=== PATIENT | male | born 1995 | race Hispanic/Latino ===

== ENCOUNTER 2018-01-26 10:06 | Inpatient (IN) | payer OTHER ==
[2018-01-26 10:58] LABS: BASO % 0.1 % (0.0-2.0); EOS % 0.2 % (0.0-4.0); HEMOGLOBIN 16.8 g/dL (12.0-18.0); LYMPH # 1.2 K/uL (1.0-4.3); LYMPH % 9.1 % (20.0-40.0); MEAN CELL VOLUME 89.1 fL (80.0-94.0); MEAN CORPUSCULAR HEMOGLOBIN 30.9 pg (27.0-31.0); MEAN CORPUSCULAR HGB CONC 34.6 g/dL (33.0-37.0); MONO # 0.6 K/uL (0.0-0.8); MONO % 4.2 % (0.0-10.0); NEUT # 11.7 K/uL (1.8-7.0); NEUT % 86.4 % (50.0-75.0); PLATELET COUNT 203 K/uL (130-400); RBC 5.44 Mil/uL (4.40-5.90); RED CELL DISTRIBUTION WIDTH 13.2 % (11.5-14.5); WHITE BLOOD COUNT 13.6 K/uL (4.8-10.8)
[2018-01-26 11:08] LABS: ALB/GLOB RATIO 1.4 (1.0-2.1); ALBUMIN 5.4 g/dL (3.5-5.0); ALT/SGPT 36 U/L (21-72); AST/SGOT 25 U/L (17-59); BLOOD UREA NITROGEN 10 mg/dL (9-20); CALCIUM 10.3 mg/dl (8.6-10.4); GFR NON-AFRICAN AMERICAN > 60
[2018-01-26 11:14] LABS: ACETAMINOPHEN < 10.0 ug/mL (10.0-30.0); SALICYLATE < 1.0 mg/dL 1
[2018-01-26 11:25] LABS: URINE BILIRUBIN NEGATIVE (NEGATIVE); URINE BLOOD NEGATIVE (NEGATIVE); URINE CLARITY Clear (Clear); URINE COLOR Straw (YELLOW); URINE GLUCOSE (UA) NORMAL (Normal); URINE LEUKOCYTE ESTERASE NEG Leu/uL (Negative); URINE PROTEIN NEGATIVE (NEGATIVE); URINE UROBILINOGEN NORMAL mg/dL (0.2-1.0)
[2018-01-26 11:29] LABS: BANDS 1 % (0-2); LYMPHOCYTE 6 % (20-40); MONOCYTE 4 % (0-10); NEUTROPHIL 89 % (50-75); PLATELET ESTIMATE NORMAL (NORMAL); TOTAL CELLS COUNTED 100
[2018-01-26 11:55] LABS: BARBITURATES, UR NEGATIVE (NEGATIVE); BENZODIAZEPINES, UR NEGATIVE (NEGATIVE); OPIATES, UR NEGATIVE (NEGATIVE); PHENCYCLIDINE, UR NEGATIVE (NEGATIVE)
--- NOTE | 2018-01-26 12:51 | C.PDOC ---
History Of Present Illness 23-year-old male presents to the ED for psychiatric evaluation. Patient was on the phone with the suicide hotline and police were contacted when he verbalized suicidal ideation and plan. Patient states he feels very overwhelmed because he is not doing well in school. He cannot face his family and feels like this is his only option. Patient got his hands on some razors, and was planning on using them to hill himself. Patient has history of depression and saw a psychologist 6-8 months ago, but has never been placed on any medication. Patient denies previous suicidal attempts, smoking, drinking or drug use. Time Seen by Provider: 01/26/18 10:18 Chief Complaint (Nursing): Psychiatric Evaluation History Per: Patient History/Exam Limitations: no limitations Onset/Duration Of Symptoms: Hrs Current Symptoms Are (Timing): Still Present Suicide/Self Injury Attempted (Context): None Modifying Factor(s): None Associated Symptoms: Suicidal Thoughts, Suicidal Plan Involuntary Hold By: None Recent travel outside of the [place]: No Additional History Per: Patient Past Medical History Reviewed: Historical Data, Nursing Documentation, Vital Signs Vital Signs: Last Vital Signs Temp 98.2 F 01/26/18 10:42 Pulse 62 01/26/18 10:42 Resp 18 01/26/18 10:42 BP 130/76 01/26/18 10:42 Pulse Ox 100 01/26/18 10:42 - Medical History PMH: No Chronic Diseases Denies: Diabetes, Hepatitis, HIV, HTN, Seizures, Sexually Transmitted Disease Surgical History: No Surg Hx Family History: States: Unknown Family Hx - Social History Hx Alcohol Use: No Hx Substance Use: No - Immunization History Hx Tetanus Toxoid Vaccination: No Hx Influenza Vaccination: No Hx Pneumococcal Vaccination: No Review Of Systems Psych: Positive for: Suicidal ideation (with plan ) Physical Exam - Physical Exam Appears: Non-toxic, No Acute Distress Skin: Normal Color, Warm, Dry Head: Atraumatic, Normacephalic Eye(s): bilateral: Normal Inspection Oral Mucosa: Moist Neck: Supple Chest: Symmetrical, No Deformity Cardiovascular: Rhythm Regular Respiratory: No Accessory Muscle Use Extremity: Normal ROM Neurological/Psych: Oriented x3, Normal Speech, Normal Cognition, Other (depressed affect ) ED Course And Treatment - Laboratory Results Result Diagrams: 01/26/18 10:47 01/26/18 10:47 O2 Sat by Pulse Oximetry: 100 (on RA) Pulse Ox Interpretation: Normal Medical Decision Making Medical Decision Making: Impression: 23 year old male with suicidal ideation and plan Plan: * bloodwork * urinalysis * crisis evaluation * reassess and disposition Progress: Bloodwork and urinalysis ordered and reviewed. Patient will be evaluated by dairy worker. Patient medically cleared, evaluated by crisis, admitted to Dr. Benavides for major depressive disorder Disposition - Disposition Disposition: HOSPITALIZED Disposition Time: 17:00 Condition: FAIR - Clinical Impression Clinical Impression: MDD (major depressive disorder) - Scribe Statement The provider has reviewed the documentation as recorded by the Scribe (Lara Del Castillo) Provider Attestation: All medical record entries made by the Scribe were at my direction and personally dictated by me. I have reviewed the chart and agree that the record accurately reflects my personal performance of the history, physical exam, medical decision making, and the department course for this patient. I have also personally directed, reviewed, and agree with the discharge instructions and disposition.
--- NOTE | 2018-01-26 17:34 | PCM.BM ---
<Leanne Cheng - Last Filed: 01/26/18 17:32> Treatment Plan Problems - Problems identified on initial assessmt Depression Date Initiated: 01/26/18 Time Initiated: 17:33 Assessment reference: NA Status: Active Suicidal Ideation Date Initiated: 01/26/18 Time Initiated: 17:33 Assessment reference: NA Status: Active Treatment assets and liabiliti Patient Assests: adapts well, cooperative, ADL independent, physically healthy, negotiates basic needs, cognitively intact Patient Liabilities: live alone (Lives in a dorm in college), substance abuse (None), medical problems (None) - Milieu Protocol Maintain good personal hygiene: daily Encourage regular showers, daily Remind patient to perform daily oral care, daily Assist patient to perform ADL's (Self) Conduct patient checks and document Observation sheet: Q15 minutes (Safety) Maintain personal safety: every shift Educate patient to report safety concerns to staff, every shift Monitor environment for contraband/sharps Medication safety: Monitor for expected outcome, potential side effects: every shift, Assess barriers to learning: every shift, Assess readiness for medication education: every shift <Alyssa Lopez - Last Filed: 01/31/18 11:25> - Diagnosis (1) MDD (major depressive disorder) Status: Acute Interventions: 01/31/18 11:25 * Assess/adjust medications daily and /or as needed * See patient on an individual basis 7x/week to assess symptoms of depression * Monitor for side effects & effectiveness of medications * <Verna Guthrie - Last Filed: 01/31/18 13:22> Family Contact Family involvement: Family/SO is involved Family contact: Patient agrees to contact Family contact name: Aileen Glover-mother Family contacted how many times per week?: 1 - Goals for Treatment Patient goals for treatment: "I don't know what I want to do yet." Discharge/Continuing Care - Education Needs Education Needs: Patient Medication, Patient Coping Skills - Discharge Discharge Criteria: Tolerates medication w/o severe side effects, Free of Suicidal thoughts, Reduction of target symptoms Discharge to:: Home - Treatment Team Participation Discussed with Family/SO: No Was Patient/Family/SO present at Treatment Team Meeting: Yes
[2018-01-26] MEDS ORDERED: Magnesium Hydroxide Susp 30 ml UD PO PRN (18:39)
[2018-01-28] MEDS ORDERED: Influenza Vaccine 60 MCG/0.5 ML SYR (3 yr & up) IM ONE (10:00)
[2018-01-28] MEDS ORDERED: Pneumococcal 23-Valent Vaccine IM ONE (10:00)
--- NOTE | 2018-01-29 04:46 | PCM.PSYCH ---
Initial Psychiatric Evaluation - Initial Psychiatric Evaluation Legal Status: Capacity Chief Complaint (in patient's own words): i'm here because i chose to come volunitarily rather than be committed Patient's Reaction to Hospitalization: nothing History of Present Illness and Precipitating Events: OR IS A 23 YEAR OLD SINGLE, DOMICILED, RABBINICAL STUDENT WHO CALLED THE SUICIDE HOT LINE BECAUSE HE WANTED TO DISCUSS HIS "OPTIONS. 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 PT LEFT SCHOOL AND WENT TO A [place] AND FROM THERE HE CALLED THE HOTLINE. PT WAS FOUND WITH A LARGE ASSORTMENT OF KNIVES AND OTHER CUTTING INSTRUMENTS. PT HAD BOUGHT THESE OBJECTS AT A HOME DEPOT. PT FEELS HE CANNOT FACE HIS FAMILY AND FELLOW STUDENTS THAT HE IS OVERWHELMED WITH THE INTRICACIES OF THE [place] AND THE VAST AMOUNT OF INFORMATION. PT HAS NOT CALLED HIS FAMILY OR FRIENDS TO LET THEM KNOW WHERE HE IS. HE STATES HE DOES NOT WANT TO DISAPPOINT HIS FAMILY AND FRIENDS. PT HAS NO LEGAL, OR SUBSTANCE ABUSE HISTORY PT STATES THERE ARE NO OTHER OPTIONS FOR HIM BUT TO GO TO [employer]. HE IS NOT INTERESTED IN ANY THING ELSE. Current Medications: Active Medications Generic Name Dose Route Start Last Admin Trade Name Freq PRN Reason Stop Dose Admin Hydroxyzine HCl 50 mg 01/26/18 18:39 01/28/18 22:42 Atarax PO 50 mg Q6 PRN Administration Anxiety Ibuprofen 600 mg 01/26/18 18:39 Motrin Tab PO Q6 PRN Pain, moderate (4-7) Magnesium Hydroxide 30 ml 01/26/18 18:39 Milk Of Magnesia PO Q8 PRN Heartburn Trazodone HCl 50 mg 01/26/18 18:39 01/29/18 00:29 Desyrel PO 50 mg HS PRN Administration Insomnia Past Psychiatric History - Past Psychiatric History Prior Professional Help: PT HAS BTALKED WITH A SABIANIST THERAPIST Pertinent Medical Hx (Current Medical&Sleep Prob, Allergies): Allergies Allergy/AdvReac Type Severity Reaction Status Date / Time No Known Allergies Allergy Verified 01/26/18 10:17 No Known Home Med 01/26/18 Review of Systems - EENT Eyes: UNREMARKABLE Ears: UNREMARKABLE Nose/Mouth/Throat: UNREMARKABLE - Cardiovascular Cardiovascular: UNREMARKABLE - Respiratory Respiratory: UNREMARKABLE - Gastrointestinal Gastrointestinal: UNREMARKABLE - Genitourinary Genitourinary: UNREMARKABLE - Reproductive: Male Reproductive:Male: UNREMARKABLE - Musculoskeletal Musculoskeletal: UNREMARKABLE - Integumentary Integumentary: UNREMARKABLE - Neurological Neurological: UNREMARKABLE - Psychiatric Psychiatric: Depression, Hopelessness - Endocrine Endocrine: UNREMARKABLE - Hematologic/Lymphatic Hematologic: UNREMARKABLE Mental Status Examination - Personal Presentation Personal Presentation: Looks younger than stated age - Affect Affect: Flat - Motor Activity Motor Activity: Calm - Reliability in Providing Information Reliability in Providing Information: Good - Speech Speech: Organized, Other - Mood Mood: Neutral - Formal Thought Process Formal Thought Process: No Impairment - Obsessions/Compulsions Obsessions: None Compulsions: None - Cognitive Functions Orientation: Person, Place, Situation, Time Sensorium: Alert Attention/Concentration: Attentive Abstract Thinking: As evidence by abstract perception of proverbs Estimate of Intelligence: Above Average Judgement: Intact, as evidence by: Other Memory: Recent intact, as evidence by: Ability to recall events of the day, Remote intact, as evidenced by: Abilit to recall sig. life events - Risk Risk: Suicidal - Strength & Assets Inventory Strength & Assets Inventory: Education - Limitations Limitations: Other DSM 5 DX - Recommended/Plan of Treatment Treatment Recommendations and Plan of Treatment: MAJOR DEPRESSIVE DISORDER SINGLE EPISODE, SEVERE WITHOUT PSYCHOTIC FEATURES: ANTIDEPRESSANT OF PT'S CHOICE. PT IS REFUSING TO TAKE ANY MEDICATIONS. SUPPORTIVE PSYCHOTHERAPY GROUP AND RECREATIONAL THERAPY Projected ELOS: 10 DAYS Prognosis: GUARDED Discharge Plan and Discharge Criteria: WHEN PT IS ABLE TO SEE A FUTURE FOR HIMSELF - Smoking Cessation Smoking Cessation Initiated: No
--- NOTE | 2018-01-29 04:56 | PCM.PYCHPN ---
Psychiatric Progress Note - Psychiatric Progress Note Patient seen today, length of contact: 20 MIN Patient Chief Complaint: NOTHING Problems Identified/Issues Discussed: PT SEEN AND EXAMINED D/W TEAMD/W PT OPTIONS OF WHAT HE COULD DO WITH HIS LIFE EXCEPT BE A RABBI. PT REFUSED TO EVEN CONSIDER OTHER OPTIONS ALSO DISCUSSED THE POSSIBILITY THAT AN ANTIDEPRESSANT WOULD HELP. PT POLITELY REFUSED Medical Problems: NOTHING ACUTE Diagnostic Results: REVIEWED DSM 5 Symptoms Update: HOPELESSNESS Medication Change: No Medical Record Reviewed: Yes Mental Status Examination - Cognitive Function Orientation: Person, Place, Situation, Time Memory: Intact Attention: WNL Concentration: WNL Association: WNL Fund of Knowledge: WN - Mood Mood: Neutral - Affect Affect: Flat - Speech Speech: Appropriate - Formal Thought Process Formal Thought Process: No Impairment - Suicidal Ideation Suicidal Ideation: No Plan: PT STATES HE HAS NO PURPOSE IN LIFE - Homicidal Ideation Homicidal Ideation: No Goal/Treatment Plan - Goal/Treatment Plan Need for Continued Stay: Remain at risks for inpatient hospitalization, Severe functional impairment Progress Toward Problem(s) and Goals/Treatment Plan: MAJOR DEPRESSIVE DISORDER SINGLE EPISODE, SEVERE WITHOUT PSYCHOTIC FEATURES: ENCOURAGE PT TO START AN ANTIDEPRESSANT Estimated Date of D/C: 02/05/18 - Smoking Cessation Smoking Cessation Initiated: No
--- NOTE | 2018-01-29 22:29 | PCM.PYCHPN ---
Psychiatric Progress Note - Psychiatric Progress Note Patient seen today, length of contact: 15 MIN Patient Chief Complaint: I was feeling depressed.' Problems Identified/Issues Discussed: Patient seen and evaluated, chart reviewed and discussed with the nurse. Patient reports depressed mood and at times feelings of hopelessness and helplessness. As per the staff patient remained isolated and withdrawn. He reports poor sleep and poor appetite. He is still refusing medications. Supportive therapy and psychoeducation were given. Medication Change: No Medical Record Reviewed: Yes Mental Status Examination - Cognitive Function Orientation: Person, Place, Situation, Time Memory: Intact Attention: WNL Concentration: Poor Association: WNL Fund of Knowledge: Poor - Mood Mood: Depressed, Anxious - Affect Affect: Constricted, Flat - Speech Speech: Appropriate - Formal Thought Process Formal Thought Process: No Impairment - Suicidal Ideation Suicidal Ideation: No - Homicidal Ideation Homicidal Ideation: No Goal/Treatment Plan - Goal/Treatment Plan Need for Continued Stay: Remain at risks for inpatient hospitalization, Severe functional impairment Progress Toward Problem(s) and Goals/Treatment Plan: Major Depressive disorder single episode severe without psychotic features -CBT -Psychotherapy -Supportive therapy, group therapy, individual therapy -Atarax 50 mg PO Q6 prn -Trazodone 50 mg PO QHS prn -Start Zoloft 50 mg PO Daily Estimated Date of D/C: 02/05/18
--- NOTE | 2018-01-30 23:12 | PCM.PYCHPN ---
Psychiatric Progress Note - Psychiatric Progress Note Patient seen today, length of contact: 15 MIN Patient Chief Complaint: I m feeling depressed.' Problems Identified/Issues Discussed: Patient seen and evaluated, chart reviewed and discussed with the nurse. Patient reports depressed mood and at times feelings of hopelessness and helplessness. As per the staff patient remained isolated and withdrawn. He reports poor sleep and poor appetite. He started taking medications but denies any side effects. Supportive therapy and psychoeducation were given. Medication Change: No Medical Record Reviewed: Yes Mental Status Examination - Cognitive Function Orientation: Person, Place, Situation, Time Memory: Intact Attention: WNL Concentration: WNL Association: WN Fund of Knowledge: Poor - Mood Mood: Neutral - Affect Affect: Flat - Speech Speech: Appropriate - Formal Thought Process Formal Thought Process: No Impairment - Suicidal Ideation Suicidal Ideation: No - Homicidal Ideation Homicidal Ideation: No Goal/Treatment Plan - Goal/Treatment Plan Need for Continued Stay: Remain at risks for inpatient hospitalization, Severe functional impairment Progress Toward Problem(s) and Goals/Treatment Plan: Major Depressive disorder single episode severe without psychotic features -CBT -Psychotherapy -Supportive therapy, group therapy, individual therapy -Atarax 50 mg PO Q6 prn -Trazodone 50 mg PO QHS prn -Start Zoloft 50 mg PO Daily Estimated Date of D/C: 02/05/18
--- NOTE | 2018-01-31 14:24 | PCM.PYCHPN ---
Psychiatric Progress Note - Psychiatric Progress Note Patient seen today, length of contact: 15 MIN Patient Chief Complaint: I m feeling little better' Problems Identified/Issues Discussed: Patient seen and evaluated, chart reviewed and discussed with the nurse. Patient reports some improvement in his depressed mood and feelings of hopelessness and helplessness. He remained isolated and withdrawn. He still reports poor sleep and poor appetite. He denies any AVH. He started taking medications but denies any side effects. Supportive therapy and psychoeducation were given. Medication Change: Yes Medical Record Reviewed: Yes Mental Status Examination - Cognitive Function Orientation: Person, Place, Situation, Time Memory: Intact Attention: WNL Concentration: WNL Association: WNL Fund of Knowledge: Poor - Mood Mood: Neutral - Affect Affect: Flat - Speech Speech: Appropriate - Formal Thought Process Formal Thought Process: No Impairment - Suicidal Ideation Suicidal Ideation: No - Homicidal Ideation Homicidal Ideation: No Goal/Treatment Plan - Goal/Treatment Plan Need for Continued Stay: Remain at risks for inpatient hospitalization, Severe functional impairment Progress Toward Problem(s) and Goals/Treatment Plan: Major Depressive disorder single episode severe without psychotic features -CBT -Psychotherapy -Supportive therapy, group therapy, individual therapy -Atarax 50 mg PO Q6 prn -Trazodone 50 mg PO QHS prn -Zoloft 100 mg PO Daily -Seroquel 100 mg PO QS Estimated Date of D/C: 02/05/18
--- NOTE | 2018-02-01 14:12 | PCM.PYCHPN ---
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 He seems comfortable and socializing well with some patients, even flirtatious at times, yet he says things to scare staff, i.e. "I'll if you discharge me" He is still not open to his family's help but he is somewhat softer compared to admission CBT introduced No med changes for now, as they are new Safety plan discussed Medication Change: No Medical Record Reviewed: Yes Mental Status Examination - Cognitive Function Orientation: Person, Place, Situation, Time Memory: Intact Attention: WNL Concentration: WNL Association: WNL Fund of Knowledge: WNL - Mood Mood: Depressed - Affect Affect: Blunted - Speech Speech: Appropriate - Formal Thought Process Formal Thought Process: No Impairment - Suicidal Ideation Suicidal Ideation: No - Homicidal Ideation Homicidal Ideation: No Goal/Treatment Plan - Goal/Treatment Plan Need for Continued Stay: Severe depression anxiety, Discharge may exacerbated symptoms, Severe functional impairment Progress Toward Problem(s) and Goals/Treatment Plan: Continue medications Support and psychoeducation daily Attend groups and activities daily After care planning by TORSTEN Estimated Date of D/C: 02/08/18 If changed, why: Needs more time to improve
--- NOTE | 2018-02-02 09:57 | PCM.PYCHPN ---
Psychiatric Progress Note - Psychiatric Progress Note Patient seen today, length of contact: 20 min Patient Chief Complaint: I m feeling less depressed.' Problems Identified/Issues Discussed: Patient seen and evaluated, chart reviewed and discussed with the nurse. Patient reports some improvement in his depressed mood and feelings of hopelessness and helplessness. He remained isolated and withdrawn. He still reports poor sleep but reports improvement in the appetite. He denies any AVH. He started taking medications but denies any side effects. Supportive therapy and psychoeducation were given. Medication Change: Yes Medical Record Reviewed: Yes Mental Status Examination - Cognitive Function Orientation: Person, Place, Situation, Time Memory: Intact Attention: WNL Concentration: WNL Association: WNL Fund of Knowledge: Poor - Mood Mood: Neutral - Affect Affect: Flat - Speech Speech: Appropriate - Formal Thought Process Formal Thought Process: No Impairment - Suicidal Ideation Suicidal Ideation: No - Homicidal Ideation Homicidal Ideation: No Goal/Treatment Plan - Goal/Treatment Plan Need for Continued Stay: Remain at risks for inpatient hospitalization, Severe functional impairment Progress Toward Problem(s) and Goals/Treatment Plan: Major Depressive disorder single episode severe without psychotic features -CBT -Psychotherapy -Supportive therapy, group therapy, individual therapy -Atarax 50 mg PO Q6 prn -Trazodone 50 mg PO QHS prn -Zoloft 100 mg PO Daily -Seroquel 100 mg PO QHS Estimated Date of D/C: 02/05/18
--- NOTE | 2018-02-03 17:22 | PCM.PYCHPN ---
Psychiatric Progress Note - Psychiatric Progress Note Patient seen today, length of contact: 15 minutes Patient Chief Complaint: After start of Zoloft, unemployed feeling some nauseous. Problems Identified/Issues Discussed: Patient seen, chart reviewed, case discussed with the staff. Issues related to illness and treatment were discussed with the patient and staff. Tolerating treatment very well. Reported compliant with treatment with no adverse affects. Patient reported feeling better with treatment. Also reported feeling nauseous since his start of Zoloft. Education provided about the medications. Patient understood and agreed. Needs more time for stabilization. Patient was calm and cooperative. Awake, alert and oriented 3. Aftercare discussed with the patient. At the time of evaluation, patient had no delusions, no auditory or visual hallucinations, no suicidal ideations or homicidal ideations. Medical Problems: None reported Diagnostic Results: Reviewed DSM 5 Symptoms Update: Some improvement with treatment Medication Change: No Medical Record Reviewed: Yes Mental Status Examination - Cognitive Function Orientation: Person, Place, Situation, Time Memory: Intact Attention: WNL Concentration: WNL Association: WN Fund of Knowledge: [facility] Decription of patient's judgement and insights: Fair - Mood Mood: Neutral - Affect Affect: Depressed - Speech Speech: Appropriate - Formal Thought Process Formal Thought Process: No Impairment Psychotic Thoughts and Behaviors: None - Suicidal Ideation Suicidal Ideation: No - Homicidal Ideation Homicidal Ideation: No Goal/Treatment Plan - Goal/Treatment Plan Need for Continued Stay: Remain at risks for inpatient hospitalization, Discharge may exacerbated symptoms, Severe functional impairment Progress Toward Problem(s) and Goals/Treatment Plan: Patient/staff education. Supportive therapy. Continue treatment as before. Estimated Date of D/C: 02/05/18 - Smoking Cessation Smoking Cessation Initiated: No
[2018-02-04 06:42] VITALS: O2SAT 98
--- NOTE | 2018-02-04 18:37 | PCM.PYCHPN ---
Psychiatric Progress Note - Psychiatric Progress Note Patient seen today, length of contact: 15 minutes Patient Chief Complaint: I'm feeling little better. I'm still depressed and my sleep is also not good. Problems Identified/Issues Discussed: Patient seen, chart reviewed, case discussed with the staff. Issues related to illness and treatment were discussed with the patient and staff. Tolerating treatment very well. Reported compliant with treatment with no adverse affects. Patient reported feeling better with treatment. Mood reported as depressed. Affect appropriate. Also reported sleeping problem. We will increase the dose of Seroquel to 100 mg. Patient understood and agreed. Needs more time for stabilization. Patient was calm and cooperative. Awake, alert and oriented 3. Aftercare discussed with the patient. At the time of evaluation, patient had no delusions, no auditory or visual hallucinations, no suicidal ideations or homicidal ideations. Medical Problems: None reported Diagnostic Results: Reviewed DSM 5 Symptoms Update: Some improvement with treatment Medication Change: Yes (Dose of Seroquel increased to 100 mg.) Medical Record Reviewed: Yes Mental Status Examination - Cognitive Function Orientation: Person, Place, Situation, Time Memory: Intact Attention: WNL Concentration: WNL Association: [facility] Fund of Knowledge: [facility] Decription of patient's judgement and insights: Fair - Mood Mood: Depressed - Affect Affect: Depressed - Speech Speech: Appropriate - Formal Thought Process Formal Thought Process: No Impairment Psychotic Thoughts and Behaviors: None - Suicidal Ideation Suicidal Ideation: No - Homicidal Ideation Homicidal Ideation: No Goal/Treatment Plan - Goal/Treatment Plan Need for Continued Stay: Remain at risks for inpatient hospitalization, Discharge may exacerbated symptoms, Severe functional impairment Progress Toward Problem(s) and Goals/Treatment Plan: Patient/staff education. Supportive therapy. Continue treatment as before. Estimated Date of D/C: 02/05/18 - Smoking Cessation Smoking Cessation Initiated: No
--- NOTE | 2018-02-05 12:10 | PCM.PYCHPN ---
Psychiatric Progress Note - Psychiatric Progress Note Patient seen today, length of contact: 20 min Patient Chief Complaint: I m feeling better than before.' Problems Identified/Issues Discussed: Patient seen and evaluated, chart reviewed and discussed with the nurse. Per staff he is not talking to his family. Patient reports improvement in his mood but still reports sad and irritable mood. He remained isolated and withdrawn. He reports improvement in his sleep and appetite. He denies any AVH. He started taking medications but denies any side effects. Supportive therapy and psychoeducation were given. Medication Change: Yes Medical Record Reviewed: Yes Mental Status Examination - Cognitive Function Orientation: Person, Place, Situation, Time Memory: Intact Attention: WNL Concentration: WNL Association: WNL Fund of Knowledge: Poor - Mood Mood: Depressed, Anxious - Affect Affect: Depressed - Speech Speech: Appropriate - Formal Thought Process Formal Thought Process: No Impairment - Suicidal Ideation Suicidal Ideation: No - Homicidal Ideation Homicidal Ideation: No Goal/Treatment Plan - Goal/Treatment Plan Need for Continued Stay: Remain at risks for inpatient hospitalization, Severe functional impairment Progress Toward Problem(s) and Goals/Treatment Plan: Major Depressive 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
--- NOTE | 2018-02-06 14:01 | PCM.PYCHPN ---
Psychiatric Progress Note - Psychiatric Progress Note Patient seen today, length of contact: 15 min Patient Chief Complaint: I m feeling better than before.' Problems Identified/Issues Discussed: Patient seen and evaluated, chart reviewed and discussed with the nurse. Per staff he is not talking to his family. Patient reports improvement in his mood but still reports sad and irritable mood. He remained isolated and withdrawn. He reports improvement in his sleep and appetite. He denies any AVH. He started taking medications but denies any side effects. Supportive therapy and psychoeducation were given. Note: D/C plan discussed with the patient in detail Pt doesn't want to go to live with his parents (as they are strict). He doesn't want to go to the [employer] school as well (as the school is very strict as well) He is asking to join (he was told the process is longer than his expectations) He is asking for more time so that he can go to live with his friends. Medication Change: Yes Medical Record Reviewed: Yes Mental Status Examination - Cognitive Function Orientation: Person, Place, Situation, Time Memory: Intact Attention: WNL Concentration: WNL Association: WNL Fund of Knowledge: WNL - Mood Mood: Anxious - Affect Affect: Depressed - Speech Speech: Appropriate - Formal Thought Process Formal Thought Process: No Impairment - Suicidal Ideation Suicidal Ideation: No - Homicidal Ideation Homicidal Ideation: No Goal/Treatment Plan - Goal/Treatment Plan Need for Continued Stay: Remain at risks for inpatient hospitalization, Severe functional impairment Progress Toward Problem(s) and Goals/Treatment Plan: Major Depressive disorder single episode severe without psychotic features -CBT -Psychotherapy -Supportive therapy, group therapy, individual therapy -Atarax 50 mg PO Q6 prn -Zoloft 200 mg PO Daily -Seroquel 100 mg PO QHS Estimated Date of D/C: 02/07/18
--- NOTE | 2018-02-07 10:13 | PCM.BM ---
<Verna Guthrie - Last Filed: 02/07/18 10:12> Treatment Plan Problems - Problems identified on initial assessmt Depression Date Initiated: 01/26/18 Time Initiated: :33 Assessment reference: NA Status: Active Suicidal Ideation Date Initiated: 01/26/18 Time Initiated: :33 Assessment reference: NA Status: Active Treatment assets and liabiliti Patient Assests: adapts well, cooperative, ADL independent, physically healthy, negotiates basic needs, cognitively intact Patient Liabilities: live alone (Lives in a dorm in college), substance abuse (None), medical problems (None) - Milieu Protocol Maintain good personal hygiene: daily Encourage regular showers, daily Remind patient to perform daily oral care, daily Assist patient to perform ADL's (Self) Conduct patient checks and document Observation sheet: Q15 minutes (Safety) Maintain personal safety: every shift Educate patient to report safety concerns to staff, every shift Monitor environment for contraband/sharps Medication safety: Monitor for expected outcome, potential side effects: every shift, Assess barriers to learning: every shift, Assess readiness for medication education: every shift Milieu Narrative: Major Depressive disorder single episode severe without psychotic features -CBT -Psychotherapy -Supportive therapy, group therapy, individual therapy -Atarax 50 mg PO Q6 prn -Zoloft 200 mg PO Daily -Seroquel 100 mg PO QHS Family Contact Family involvement: Family/SO is involved Family contact: Patient agrees to contact Family contact name: Aileen Glover-mother Family contacted how many times per week?: 1 - Goals for Treatment Patient goals for treatment: "I don't know what I want to do yet." Discharge/Continuing Care - Education Needs Education Needs: Patient Medication, Patient Coping Skills - Discharge Discharge Criteria: Tolerates medication w/o severe side effects, Free of Suicidal thoughts, Reduction of target symptoms Discharge to:: Home - Treatment Team Participation Patient/Family/SO Statement: Major Depressive disorder single episode severe without psychotic features -CBT -Psychotherapy -Supportive therapy, group therapy, individual therapy -Atarax 50 mg PO Q6 prn -Zoloft 200 mg PO Daily -Seroquel 100 mg PO QHS Discussed with Family/SO: No Was Patient/Family/SO present at Treatment Team Meeting: Yes Treatment Plan Review - Problem Depression Time Initiated: Suicidal Ideation Time Initiated: 17:33 - Discharge / Continuing Care Discharge to:: Home, With Family Behavioral Health Services: Outpatient therapy Health Needs: Medications/Rx <Vickie Beal - Last Filed: 02/07/18 10:19> Treatment Plan Review - Problem Depression Date Initiated: 02/07/18 Time Initiated: 10:18 Progress toward outcomes: improved Suicidal Ideation Date Initiated: 02/07/18 Time Initiated: 10:19 Progress toward outcomes: improved <Alyssa Lopez - Last Filed: 02/07/18 10:25> - Diagnosis (1) MDD (major depressive disorder) Status: Acute Interventions: 02/07/18 10:25 * Assess/adjust medications daily and /or as needed * See patient on an individual basis 7x/week to assess symptoms of depression * Monitor for side effects & effectiveness of medications *
[2018-02-08 09:20] VITALS: BP 130/85; PULSE 96; RESP 18; TEMP 98.2
--- NOTE | 2018-02-08 10:42 | PCM.PYCHPN ---
Psychiatric Progress Note - Psychiatric Progress Note Patient seen today, length of contact: 15 min Patient Chief Complaint: I m feeling better.' Problems Identified/Issues Discussed: Patient seen and evaluated, chart reviewed and discussed with the nurse. Patient reports improvement in his mood and reports improvement in his sleep and appetite. He denies any AVH,SI/HI. He is taking medications and denies any side effects. Symptoms are improving but pt needs more time, so that he can go to his friends. Supportive therapy and psychoeducation were given. 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 D/C plan discussed with the patient in detail Pt still doesn't want to go to live with his parents and he still doesn't want to go to the [employer] school either. He brought up the recruitment process of again (he was informed about the the process) He reported that he has spoken with his friends and he will go to them upon discharge. Medication Change: Yes Medical Record Reviewed: Yes Mental Status Examination - Cognitive Function Orientation: Person, Place, Situation, Time Memory: Intact Attention: WNL Concentration: WNL Association: WNL Fund of Knowledge: WNL - Mood Mood: Neutral - Affect Affect: Constricted - Speech Speech: Appropriate - Formal Thought Process Formal Thought Process: No Impairment - Suicidal Ideation Suicidal Ideation: No - Homicidal Ideation Homicidal Ideation: No Goal/Treatment Plan - Goal/Treatment Plan Need for Continued Stay: Other Progress Toward Problem(s) and Goals/Treatment Plan: Major Depressive disorder single episode severe without psychotic features -CBT -Psychotherapy -Supportive therapy, group therapy, individual therapy -Atarax 50 mg PO Q6 prn -Zoloft 200 mg PO Daily -Seroquel 100 mg PO QHS Estimated Date of D/C: 02/08/18 - Smoking Cessation Smoking Cessation Initiated: No
--- NOTE | 2018-02-08 10:50 | PCM.PYCHDC ---
Mental Status Examination - Mental Status Examination Orientation: Person, Place, Situation, Time Memory: Intact Mood: Neutral Affect: Constricted Speech: Soft Attention: WNL Concentration: WNL Association: WNL Fund of Knowledge: WNL Formal Thought Process: No Impairment Description of patient's judgement and insight: good, fair Psychotic Thoughts and Behaviors: denies any AVH Suicidal Ideation: No Current Homicidal Ideation?: No Discharge Summary - Discharge Note Reason for Hospitalization: NC IS A 23 YEAR OLD SINGLE, DOMICILED, RABBINICAL STUDENT WHO CALLED THE SUICIDE HOT LINE BECAUSE HE WANTED TO DISCUSS HIS "OPTIONS. 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 PT LEFT SCHOOL AND WENT TO A [facility] AND FROM THERE HE CALLED THE HOTLINE. PT WAS FOUND WITH A LARGE ASSORTMENT OF KNIVES AND OTHER CUTTING INSTRUMENTS. PT HAD BOUGHT THESE OBJECTS AT A HOME DEPOT. PT FEELS HE CANNOT FACE HIS FAMILY AND FELLOW STUDENTS THAT HE IS OVERWHELMED WITH THE INTRICACIES OF THE [employer] AND THE VAST AMOUNT OF INFORMATION. PT HAS NOT CALLED HIS FAMILY OR FRIENDS TO LET THEM KNOW WHERE HE IS. HE STATES HE DOES NOT WANT TO DISAPPOINT HIS FAMILY AND FRIENDS. PT HAS NO LEGAL, OR SUBSTANCE ABUSE HISTORY PT STATES THERE ARE NO OTHER OPTIONS FOR HIM BUT TO GO TO [employer]. HE IS NOT INTERESTED IN ANY THING ELSE. MAJOR DEPRESSIVE DISORDER SINGLE EPISODE, SEVERE WITHOUT PSYCHOTIC FEATURES: ANTIDEPRESSANT OF PT'S CHOICE. PT IS REFUSING TO TAKE ANY MEDICATIONS. SUPPORTIVE PSYCHOTHERAPY GROUP AND RECREATIONAL THERAPY Consultations:: List each consultation separately and include: 1. Reason for request. 2. Findings. 3. Follow-up Summary of Hospital Course include:: 1. Description of specific treatment plan utilized for patients during their course of treatmen. 2. Summarize the time- course for resolution of acute symptoms and/or regressed behaviors. 3. Describe issues identified and worked on during hospitalization. 4. Describe medication utilized. 5. Describe medical problems identified and treated. 6. Reassessment of suicide risk Summary of Hospital Course: During the course of his stay, patient (pt) started progressively improving and no longer remained irritable, depressed, and suicidal. Zoloft and seroquel were started and pt showed a very good response. His mood and anxiety were improved and he started attending groups and meetings and started socializing. Patient denied any feelings of hopelessness, helplessness, and worthlessness, denied any problem with the sleep or appetite, denied suicidal ideation or homicidal ideation. Pt denied any auditory or visual hallucinations. He denied any withdrawal symptoms. Pt was treated with medications along with supportive therapy, milieu therapy and group therapy. Some changes were made in his current medications and patient was discharged on following medications. He tolerated these medications very well and denied any side effects. - Diagnosis (1) MDD (major depressive disorder) Status: Acute - Final Diagnosis (DSM 5) Condition upon Discharge: FAIR DSM 5: Major Depressive disorder single episode severe without psychotic features Disposition: HOME/ ROUTINE Follow-up Treatment Plan: Followup: He was discharged to the [facility] outpatient program, [place]. Education: Pt was educated and counseled about the risks and benefits of taking and not taking medications. Pt was educated and counseled about the risks of drinking and abusing drugs. Pt was educated and counseled to go to the ER or call 911 if pt develop suicidal ideation or homicidal ideation, worsening of symptoms or severe side effects of the meds. Prescriptions/Medication Reconciliation: QUEtiapine [SEROquel] 100 mg PO HS #30 tab Sertraline [Zoloft] 100 mg PO DAILY #60 tab - Smoking Cessation Smoking Cessation Medication prescribed: No - Antipsychotic Medications Pt discharged on 2 or more routine antipsychotic medications: No
== END 2018-02-08 14:45 | disposition home or self-care (01) | DRG 885 ==
LOC: C.ER 10:06 → C.5E 16:19 → EEVIPCON 16:19 → C.5E 01-28 12:52
PROC: GZHZZZZ Group Psychotherapy (ICD-10-PCS; principal; 2018-01-26)
PROC: GZ56ZZZ Individual Psychotherapy, Supportive (ICD-10-PCS; 2018-01-26)
DX: F32.2 Major depressive disorder, single episode, severe without psychotic features (principal); R45.851 Suicidal ideations; F60.81 Narcissistic personality disorder